=== PATIENT | male | born 1970 | race Caucasian/White ===

== ENCOUNTER 2018-11-14 03:22 | Emergency (ER) | payer OTHER ==
[~2018-11-14] VITALS: Ht 175.3 cm; Wt 97.5 kg
--- NOTE | 2018-11-14 03:22 | NUR ---
Patient BIB [facility] for pre-booking medical screening exam, transferred to chair E. RN evaluating patient.
[2018-11-14 03:23] VITALS: BP 125/78
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
[2018-11-14] MEDS ORDERED: IBUPROFEN 800 MG TAB PO ONE (03:30)
[2018-11-14 03:41] VITALS: BP 125/78
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
== END 2018-11-14 03:42 | disposition home or self-care (01) ==
LOC: MED 03:22
DX: M25.551 Pain in right hip (principal); F10.129 Alcohol abuse with intoxication, unspecified
CPT/HCPCS: 99283